=== PATIENT | female | born 1970 | race Caucasian/White ===

== ENCOUNTER → 2023-01-08 | Outpatient (REF) | payer MEDICARE, MEDICAID ==
[~2023-01-08] MED LIST: ALPR0.5T3 PO; AMBI10TA PO; BUPR200T41 PO; BUSP15TA47 PO; CYCL-707 PO; DHEA50CA4 PO; HORI600T PO; LEVO137C PO; MORP1CAP11 PO; MYRB50TA PO; OMEP40CA4 PO; OXYC1TAB23 PO; SIMV10TA21 PO; SYST0.4D2 OP
== END ==
LOC: M LAB REF 14:04
PROVIDERS: ATTEND Dentist
DX: Z53.9 Procedure and treatment not carried out, unspecified reason (principal)

== ENCOUNTER 2023-01-13 11:10 | Outpatient (CLI) | payer MEDICARE, MEDICAID ==
[~2023-01-13 11:10] MED LIST changes: -ALPR0.5T3 PO; -AMBI10TA PO; -BUPR200T41 PO; -BUSP15TA47 PO; -CYCL-707 PO; -DHEA50CA4 PO; -HORI600T PO; -LEVO137C PO; -LIDOCAINE 1% MDV 20ML VIAL As Ordered ONE; -MORP1CAP11 PO; -MYRB50TA PO; -OMEP40CA4 PO; -OXYC1TAB23 PO; -SIMV10TA21 PO; +SODIUM CHLORIDE 0.9% INJ 10 ML SYR IV SCH; -SYST0.4D2 OP
[2023-01-13] MEDS ORDERED: DHEA50CA4 PO (12:03)
[2023-01-13] MEDS ORDERED: BUSP15TA47 PO (12:03)
[2023-01-13] MEDS ORDERED: HORI600T PO (12:03)
[2023-01-13] MEDS ORDERED: CYCL-707 PO (12:03)
[2023-01-13] MEDS ORDERED: AMBI10TA PO (12:03)
[2023-01-13] MEDS ORDERED: ALPR0.5T3 PO (12:03)
[2023-01-13] MEDS ORDERED: BUPR200T41 PO (12:03)
[2023-01-13] MEDS ORDERED: OMEP40CA4 PO (12:08)
[2023-01-13] MEDS ORDERED: SYST0.4D2 OP (12:08)
[2023-01-13] MEDS ORDERED: SIMV10TA21 PO (12:08)
[2023-01-13] MEDS ORDERED: MORP1CAP11 PO (12:08)
[2023-01-13] MEDS ORDERED: LEVO137C PO (12:08)
[2023-01-13] MEDS ORDERED: MYRB50TA PO (12:08)
[2023-01-13] MEDS ORDERED: OXYC1TAB23 PO (12:08)
[2023-01-13] MEDS ORDERED: SODIUM CHLORIDE 0.9% INJ 10 ML SYR IV PRN (12:15)
[2023-01-13 12:45] VITALS: BP 105/64
[2023-01-13] MEDS ORDERED: ERTAPENEM SODIUM 1 GM in NS MINI-BAG PLUS 50 ML IV ONE (13:00)
[2023-01-13 13:16] LABS: BASO # 0.1 10^3/uL (0.0-0.2); BASO % 0.8 % (0.0-1.0); EOS # 0.7 10^3/uL (0.0-0.5); EOS % 8.9 % (0.0-3.0); HEMATOCRIT 35.4 % (36.0-47.0); HEMOGLOBIN 11.4 g/dl (12.0-15.5); LYMPH # 3.2 10^3/uL (1.5-5.0); LYMPH % 40.6 % (24.0-44.0); MEAN CORPUSCULAR HEMOGLOBIN 29.8 pg (27.0-33.0); MEAN CORPUSCULAR HGB CONC 32.2 g/dl (32.0-36.5); MEAN CORPUSCULAR VOLUME 92.4 fl (80.0-96.0); MONO # 0.5 10^3/uL (0.0-0.8); MONO % 6.2 % (2.0-8.0); NEUTROPHILS # 3.4 10^3/uL (1.5-8.5); NEUTROPHILS % 43.2 % (36.0-66.0); PLATELET COUNT, AUTOMATED 301 10^3/uL (150-450); RED BLOOD COUNT 3.83 10^6/uL (4.00-5.40); WHITE BLOOD COUNT 7.9 10^3/uL (4.0-10.0)
[2023-01-13 13:45] VITALS: BP 112/68
[2023-01-13 13:48] LABS: ERYTHROCYTE SEDIMENTATION RATE 52 mm/hr (0-30)
[2023-01-13 13:50] LABS: ALBUMIN 3.5 G/DL (3.2-5.2); ALKALINE PHOSPHATASE 73 U/L (46-116); ALT/SGPT 14 U/L (7.0-40); AST/SGOT 17 U/L (<34); BILIRUBIN,TOTAL 0.2 MG/DL (0.3-1.2); BLOOD UREA NITROGEN 12 MG/DL (9-23); CALCIUM LEVEL 9.1 MG/DL (8.5-10.1); CARBON DIOXIDE LEVEL 28 MMOL/L (20-31); CHLORIDE LEVEL 106 MMOL/L (98-107); CREATININE FOR GFR 0.69 MG/DL (0.55-1.30); GLOMERULAR FILTRATION RATE > 60.0 (>51); GLUCOSE, FASTING 100 MG/DL (60-100); POTASSIUM SERUM 4.1 MMOL/L (3.5-5.1); SODIUM LEVEL 139 MMOL/L (136-145); TOTAL PROTEIN 6.2 G/DL (5.7-8.2)
== END 2023-01-13 13:45 | disposition home or self-care (01) ==
LOC: M INFU 11:10
PROVIDERS: ATTEND Internal Medicine Infectious Disease
DX: M27.2 Inflammatory conditions of jaws (principal); M86.68 Other chronic osteomyelitis, other site; Z88.0 Allergy status to penicillin; Z88.8 Allergy status to other drugs, medicaments and biological substances
CPT/HCPCS: 36569; 36591; 80053; 85025; 85652; 86140; 96365; C1751; J1335

== ENCOUNTER → 2023-01-13 | Outpatient (CLI) | payer MEDICARE, MEDICAID ==
[~2023-01-13] MED LIST changes: +LIDOCAINE 1% MDV 20ML VIAL As Ordered ONE
[2023-01-13 12:30] VITALS: BP 107/86
== END ==
LOC: M IRPRO 10:59
PROVIDERS: ATTEND Internal Medicine Infectious Disease
DX: M86.68 Other chronic osteomyelitis, other site (principal)